=== PATIENT | female | born 1950 | race Caucasian/White ===

== ENCOUNTER 2020-04-20 09:31 | Outpatient (CLI) | payer SELFPAY ==
[2020-04-20 17:26] LABS: SARS-CoV-2 PCR by NAA Not Detected (NotDetected)
== END 2020-04-20 09:32 | disposition home or self-care (01) ==
LOC: LABBT 09:31
PROVIDERS: ATTEND Nurse Practitioner
DX: H02.839 Dermatochalasis of unspecified eye, unspecified eyelid (principal); Z20.822 Contact with and (suspected) exposure to COVID-19
CPT/HCPCS: 87635; U0003; U0005

== ENCOUNTER 2020-04-24 06:07 | Day surgery (SDC) | payer OTHER ==
[2020-04-21 10:57] VITALS: BMI 31.1
[2020-04-24] MEDS ORDERED: Lidocaine 1% w/Epinephrine 1:100K 20 ML VIAL ONE (06:32)
[2020-04-24] MEDS ORDERED: Maxitrol 0.1% Opth Oint 3.5 GM TUBE ONE (06:32)
[2020-04-24] MEDS ORDERED: Fentanyl 100 MCG/2 ML VIAL ONE (06:36)
[2020-04-24] MEDS ORDERED: HYDROmorphone 0.5 MG/0.5 ML SYRINGE ONE (06:36)
[2020-04-24] MEDS ORDERED: Bupivacaine 0.25% HCL 30 ML VIAL ONE (06:56)
[2020-04-24] MEDS ORDERED: Propofol 500 MG/50 ML VIAL ONE (06:56)
[2020-04-24] MEDS ORDERED: EPINEPHrine 1 MG/ML AMP ONE (06:56)
[2020-04-24] MEDS ORDERED: Midazolam HCl 2 mg/2 ml Vial ONE (06:56)
[2020-04-24] MEDS ORDERED: traMADol HCl 50 MG TAB ONE (08:34)
--- NOTE | 2020-04-24 10:24 | OP ---
DATE OF PROCEDURE: 04/24/2020 PREOPERATIVE DIAGNOSIS: Bilateral upper dermatochalasis. POSTOPERATIVE DIAGNOSIS: Bilateral upper dermatochalasis. PROCEDURE PERFORMED: Bilateral upper blepharoplasty. DESCRIPTION OF PROCEDURE: Following induction of adequate anesthesia, the patient was prepped and draped in usual sterile fashion in a supine position. Attention was first turned to the right upper eyelid. An ellipse of skin was excised. The orbicularis and orbital septum were then incised medially. An appropriate amount of fat was gently teased out of the medial compartment and removed using electrocautery. The field was inspected for meticulous hemostasis, irrigated, and closed with 5-0 Prolene suture. A similar procedure was done on each side. INDICATIONS FOR PROCEDURE: The patient had dermatochalasis without visual field obstruction. Job ID: [id number]
== END 2020-04-24 09:40 | disposition home or self-care (01) ==
LOC: SDC 06:07
PROVIDERS: ATTEND Plastic Surgery
PROC: 08SNXZZ Reposition Right Upper Eyelid, External Approach (ICD-10-PCS; principal; 2020-04-24)
PROC: 08SPXZZ Reposition Left Upper Eyelid, External Approach (ICD-10-PCS; principal; 2020-04-24)
DX: Z41.1 Encounter for cosmetic surgery (principal); H02.831 Dermatochalasis of right upper eyelid; H02.834 Dermatochalasis of left upper eyelid; I10 Essential (primary) hypertension; E11.9 Type 2 diabetes mellitus without complications; E07.9 Disorder of thyroid, unspecified; M19.90 Unspecified osteoarthritis, unspecified site; Z79.82 Long term (current) use of aspirin; Z79.84 Long term (current) use of oral hypoglycemic drugs; Z79.899 Other long term (current) drug therapy; Z88.2 Allergy status to sulfonamides; Z88.5 Allergy status to narcotic agent; Z88.8 Allergy status to other drugs, medicaments and biological substances
CPT/HCPCS: 93005; 93010; J0171; J0690; J1170; J2250; J2704; J3010; S0020